=== PATIENT | male | born 1965 | race Caucasian/White ===

== ENCOUNTER → 2016-07-23 | Outpatient (CLI) | payer BC ==
[~2016-07-23] VITALS: Ht 167.6 cm; Wt 79.4 kg
[~2016-07-23] MED LIST: ALBU17IN2 INH; ALEV220T26 PO; CYMB60CA3 PO; LIDOCAINE 2% INJ 100 MG/5 ML SDV (FOR ANES.) As Ordered ONE; PANT40TA2 PO; PROPOFOL 200 MG/20 ML VIAL As Ordered ONE; SIMV40TA2 PO; SYMB80INH INH
[2016-07-23] MEDS: NS 1,000 ML IV SCH (10:20)
--- NOTE | 2016-07-23 11:01 | ROOR ---
Patient Name: Miguel Agarwal Procedure Date: 07/23/2016 10:28 AM Date of : 1965 Age: 50 Room: OP Gender: Male Note Status: Finalized Procedure: Colonoscopy Indications: High risk colon cancer surveillance: Personal history of colonic polyps Providers: Ace Donahue MD Referring MD: WILEY MEJIA [facility] WILEY MEJIA [facility], Admin. Requesting Provider: Medicines: Monitored Anesthesia Care Complications: No immediate complications. Procedure: Pre-Anesthesia Assessment: - Prior to the procedure, a History and Physical was performed, and patient medications and allergies were reviewed. The patient is competent. The risks and benefits of the procedure and the sedation options and risks were discussed with the patient. All questions were answered and informed consent was obtained. Patient identification and proposed procedure were verified by the physician, the nurse and the registered radiographer in the endoscopy suite. Mental Status Examination: alert and oriented. Airway Examination: normal oropharyngeal airway and neck mobility. Respiratory Examination: clear to auscultation. CV Examination: normal. Prophylactic Antibiotics: The patient does not require prophylactic antibiotics. Prior Anticoagulants: The patient has taken no previous anticoagulant or antiplatelet agents. ASA Grade Assessment: II - A patient with mild systemic disease. After reviewing the risks and benefits, the patient was deemed in satisfactory condition to undergo the procedure. The anesthesia plan was to use monitored anesthesia care (MAC). Immediately prior to administration of medications, the patient was re-assessed for adequacy to receive sedatives. The heart rate, respiratory rate, oxygen saturations, blood pressure, adequacy of pulmonary ventilation, and response to care were monitored throughout the procedure. The physical status of the patient was re-assessed after the procedure. The Colonoscope was introduced through the anus and advanced to the cecum, identified by appendiceal orifice and ileocecal valve. The colonoscopy was performed without difficulty. The colonoscopy was somewhat difficult due to a tortuous colon. The patient tolerated the procedure well. The quality of the bowel preparation was good. Findings: The perianal and digital rectal examinations were normal. A 5 to 7 mm polyp was found in the descending colon. The polyp was sessile. The polyp was removed with a hot snare. Resection and retrieval were complete. Estimated blood loss was minimal. The exam was otherwise without abnormality. No additional abnormalities were found on retroflexion. Impression: - One 5 to 7 mm polyp in the descending colon, removed with a hot snare. Resected and retrieved. - The examination was otherwise normal. Recommendation: - Discharge patient to home (ambulatory). - Repeat colonoscopy in 5 years for surveillance. - Telephone my office for pathology results in 2 weeks. Ace Donahue MD Ace Donahue MD 07/23/2016 11:00:48 AM This report has been signed electronically. Number of Addenda: 0 Note Initiated On: 07/23/2016 10:28 AM Estimated Blood Loss: Estimated blood loss was minimal.
[2016-07-23 11:22] VITALS: BP 134/93
== END ==
LOC: M OPP 09:51
PROVIDERS: ATTEND Surgery
DX: Z12.11 Encounter for screening for malignant neoplasm of colon (principal); D12.4 Benign neoplasm of descending colon; Z86.010 Personal history of colon polyps; E78.5 Hyperlipidemia, unspecified; F41.9 Anxiety disorder, unspecified; F32.9 Major depressive disorder, single episode, unspecified; J44.9 Chronic obstructive pulmonary disease, unspecified; R12 Heartburn; N40.1 Benign prostatic hyperplasia with lower urinary tract symptoms; R06.83 Snoring; M19.90 Unspecified osteoarthritis, unspecified site; J45.909 Unspecified asthma, uncomplicated; F12.20 Cannabis dependence, uncomplicated; Z80.0 Family history of malignant neoplasm of digestive organs; Z80.3 Family history of malignant neoplasm of breast; Z79.51 Long term (current) use of inhaled steroids; Z79.899 Other long term (current) drug therapy

== ENCOUNTER 2024-02-19 21:18 | Emergency (ER) | payer OTHER ==
[~2024-02-19] VITALS: Ht 170.2 cm; Wt 75.0 kg
[~2024-02-19 21:18] MED LIST changes: -CYMB60CA3 PO; +CYMB60CA4 PO; -LIDOCAINE 2% INJ 100 MG/5 ML SDV (FOR ANES.) As Ordered ONE; -PANT40TA2 PO; +PANT40TA29 PO; -PROPOFOL 200 MG/20 ML VIAL As Ordered ONE; -SIMV40TA2 PO; +SIMV40TA20 PO
[2024-02-19 21:24] VITALS: TEMP 97.9
[2024-02-20] MEDS: KETOROLAC 30 MG/ML 1ML VIAL IV ONE (01:46)
[2024-02-20] MEDS: NS 1,000 ML IV ONE (01:50)
[2024-02-20 02:00] VITALS: BP 131/88
[2024-02-20 03:03] VITALS: O2SAT 96
[2024-02-23] MEDS ORDERED: CELE0.09 PO (13:54)
[2024-02-23] MEDS ORDERED: TAMS1CAP17 PO (13:54)
[2024-02-23] MEDS ORDERED: FENO145T7 PO (13:54)
== END 2024-02-20 03:52 | disposition home or self-care (01) ==
LOC: M ED 21:18
DX: S82.421A Displaced transverse fracture of shaft of right fibula, initial encounter for closed fracture (principal); W17.89XA Other fall from one level to another, initial encounter; M48.02 Spinal stenosis, cervical region; M40.50 Lordosis, unspecified, site unspecified; F41.9 Anxiety disorder, unspecified; F32.A Depression, unspecified; F10.10 Alcohol abuse, uncomplicated; Y92.009 Unspecified place in unspecified non-institutional (private) residence as the place of occurrence of the external cause; Y93.89 Activity, other specified; Y99.9 Unspecified external cause status; Z79.52 Long term (current) use of systemic steroids; Z79.899 Other long term (current) drug therapy
CPT/HCPCS: 70450; 72125; 72128; 73590; 73610; 96361; 96374; 99284; J1885

== ENCOUNTER 2024-02-25 08:57 | Day surgery (SDC) | payer OTHER ==
[~2024-02-25] VITALS: Ht 165.1 cm; Wt 74.5 kg
[~2024-02-25 08:57] MED LIST changes: +CELE0.09 PO; +FENO145T7 PO; +TAMS1CAP17 PO
[2024-02-25] MEDS ORDERED: ROCURONIUM BROMIDE 50MG/5ML VIAL As Ordered ONE (09:04)
[2024-02-25] MEDS ORDERED: ONDANSETRON 4MG 2ML VIAL As Ordered ONE (09:04)
[2024-02-25] MEDS ORDERED: fentaNYL 100 MCG/2 ML INJECTION As Ordered ONE (09:04)
[2024-02-25] MEDS ORDERED: propofoL 200 MG/20 ML VIAL As Ordered ONE (09:04)
[2024-02-25] MEDS ORDERED: ACETAMINOPHEN 1000MG 100ML IV BAG As Ordered ONE (09:04)
[2024-02-25] MEDS ORDERED: MIDAZOLAM INJ 2MG/2ML VIAL As Ordered ONE (09:04)
[2024-02-25] MEDS ORDERED: LIDOCAINE 2% 100MG/5ML SDV (FOR ANES.) As Ordered ONE (09:04)
[2024-02-25] MEDS: LR 1,000 ML IV SCH (10:43)
[2024-02-25] MEDS ORDERED: PHENYLephrine 500MCG 5ML (100MCG/ML) SYRINGE As Ordered ONE (11:45)
[2024-02-25] MEDS: ceFAZolin SOD 2 GM in IV 1 EA IV ONE (11:46)
[2024-02-25] MEDS ORDERED: ePHEDrine SULFATE 25 MG/5 ML(5MG/ML) SYRINGE As Ordered ONE (12:04)
[2024-02-25] MEDS ORDERED: SUGAMMADEX SODIUM 500 MG/5 ML VIAL (BRIDION) As Ordered ONE (12:21)
[2024-02-25] MEDS ORDERED: LR 1,000 ML IV SCH (12:50)
[2024-02-25] MEDS ORDERED: fentaNYL 100 MCG/2 ML INJECTION IV PRN (12:50)
[2024-02-25] MEDS: HYDROMORPHONE HCL 0.5 MG/ 0.5 ML SYRINGE IV PRN (13:04)
[2024-02-25] MEDS: ONDANSETRON 4MG 2ML VIAL IV PRN (13:04)
[2024-02-25] MEDS: oxyCODONE 5MG TAB PO PRN (13:05)
[2024-02-25] MEDS ORDERED: OXYC1TAB23 PO (13:19)
[2024-02-25 13:50] VITALS: BP 124/78; TEMP 97.1; O2SAT 95
== END 2024-02-25 14:22 | disposition home or self-care (01) ==
LOC: M SDC 08:57
PROVIDERS: ATTEND Orthopaedic Surgery
DX: S93.439A Sprain of tibiofibular ligament of unspecified ankle, initial encounter (principal); S82.61XA Displaced fracture of lateral malleolus of right fibula, initial encounter for closed fracture; W22.8XXA Striking against or struck by other objects, initial encounter; X50.0XXA Overexertion from strenuous movement or load, initial encounter; Y93.89 Activity, other specified; Y92.9 Unspecified place or not applicable; J44.89 Other specified chronic obstructive pulmonary disease; E78.00 Pure hypercholesterolemia, unspecified; Z79.899 Other long term (current) drug therapy; N40.0 Benign prostatic hyperplasia without lower urinary tract symptoms; K21.9 Gastro-esophageal reflux disease without esophagitis; Z90.89 Acquired absence of other organs; Z79.51 Long term (current) use of inhaled steroids
CPT/HCPCS: 27792; 27829; 76000; 93005; C1713; J0131; J0665; J0690; J1100; J1170; J2250; J2371; J2405; J3010

== ENCOUNTER → 2024-03-02 | Outpatient (CLI) | payer OTHER ==
[~2024-03-02] MED LIST changes: +OXYC1TAB23 PO
== END ==
LOC: M SOG 07:51
PROVIDERS: ATTEND Orthopaedic Surgery
DX: S82.61XA Displaced fracture of lateral malleolus of right fibula, initial encounter for closed fracture (principal); Y93.9 Activity, unspecified; Y92.9 Unspecified place or not applicable

== ENCOUNTER → 2024-04-15 | Outpatient (CLI) | payer OTHER | LOC: M SOG 08:31 | PROVIDERS: ATTEND Physician Assistant | DX: S82.61XA Displaced fracture of lateral malleolus of right fibula, initial encounter for closed fracture (principal); Y93.9 Activity, unspecified; Y92.9 Unspecified place or not applicable ==